=== PATIENT | female | born 2000 | race Caucasian/White ===

== ENCOUNTER 2025-07-19 14:22 | Outpatient (AMB) | payer OTHER, SELFPAY ==
--- NOTE | 2025-07-19 14:31 | MHC.PC.OV ---
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 She has a celiac disease, h pylori and abnormal Pap smear GI: She states around she started following with GI when she developed abdominal pain, bloating and significant weight loss. She had lost about 45 lb. She went to GI and was diagnosed with celiac disease and H pylori. She states that she is very good with a gluten free diet but still gets intermittent abdominal pain and bloating. We will come out of nowhere. Sometimes she thinks it could be related to foods but then other times she does not know. She never had a colonoscopy but she did have an endoscopy. -on 1 CT she was also noted to have fatty liver and was supposed to have an ultrasound to recheck this but never was able to complete this. She does not drink alcohol and she eats overall healthy. 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 She states that she now only has bleeding for 1 day out of the month with painful PMS sx. This has been going on since the beginning of this year. She had an abnormal pap 02/23/25. She says that there was no real follow up discussed in regards to the abnormal Pap. 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 1. Little interest or pleasure in doing things: not at all 2. Feeling down, depressed, or hopeless: not at all 3. Trouble falling or staying asleep, or sleeping too much: not at all 4. Feeling tired or having little energy: not at all 5. Poor appetite or overeating: not at all 6. Feeling bad about yourself - or that you are a failure or have let yourself or your family down: not at all 7. Trouble concentrating on things, such as reading the newspaper or watching television: not at all 8. Moving or speaking so slowly that other people could have noticed. Or the opposite - being so fidgety or restless that you have been moving around a lot more than usual: not at all 9. Thoughts that you would be better off or of hurting yourself in some way: not at all Total score: 0 Depression Screening Interpretation: Negative Depression Screening Done: Yes 07210 - PHQ-9 Billing: Yes Source: Developed by Drs. Ganesh Abarca, Anjelica Justice, Noah Malik and colleagues, with an educational agueda from [email or web address]. Thrive Questionnaire Date Thrive assessed: 07/19/25 I am a: Patient What is your living situation today?: I have a steady place to live Within the past 12 months, did the food you bought not last and you didn't have the money to get more?: Never true Within the past 12 months, did you worry whether your food would run out before you got money to buy more?: Never true Do you have trouble paying for medicines?: No Do you have trouble getting transportation to medical appointments?: No Do you have trouble paying your heating and electricity bill?: No Do you have trouble taking care of your child, family member or friend?: No Do you have trouble with day-to-day activities such as bathing, preparing meals, shopping, managing finances, etc.?: No Are you currently unemployed and looking for a job?: No Are you interested in more education?: Yes Please select the resources that you would like help with: None Currently or been in a relationship where the following occur: I choose not to answer THRIVE Score: 0 AUDIT C Alcohol Use Questionnaire (AUDIT-C) 1. How often do you have a drink containing alcohol?: Never 3. How often do you have six or more drinks on one occasion?: Never Total Score: 0 KALLI-7 AMB Questionnaire KALLI-7 Date KALLI - 7 assessed: 07/19/25 Feeling nervous, anxious, or on edge: 0 = Not at all Not being able to stop or control worryin = Not at all Worrying too much about different things: 0 = Not at all Trouble relaxin = Not at all Being so restless that it is hard to sit still: 0 = Not at all Becoming easily annoyed or irritable: 0 = Not at all Feeling afraid as if something awful might happen: 0 = Not at all Total KALLI-7 score (0-4 normal; 5-9 mild; 10-14 moderate; 15-21 severe): 0 Source: Developed by Drs. Ganesh Abarca, Anjelica Justice, Noah Malik and colleagues, with an educational agueda from [email or web address]. KALLI-7 Assessment Billing KALLI-7 Assessment Tool: KALLI-7 Assessment 02167 Physical exam (Primary Care) Vital Signs: Last Vital Signs Temp 98.6 F 07/19/25 14:38 Pulse 74 07/19/25 14:38 Resp 12 07/19/25 14:38 BP 109/66 07/19/25 14:38 Pulse Ox 98 07/19/25 14:38 Oxygen Delivery Method Room Air 07/19/25 14:38 BMI result Body Mass Index 23.0 Tobacco/Smoking Status: Tobacco use Status Tobacco use date assessed 07/19/25 07/19/25 14:45 Patient Tobacco Use Status Never used Tobacco 07/19/25 14:45 e-Cigarette/Vaping Use Never Used 07/19/25 14:45 PHQ-9: PHQ-9 Score PHQ-9: Total score 0 07/20/25 10:21 Depression Screening Interpretation: Negative Thrive Assessment: Date of Thrive Assessment Date Thrive assessed 07/19/25 07/19/25 14:45 Currently or been in a relationship where the following occur: I choose not to answer Const Orientation/consciousness: patient oriented x3 HENMT Ears: hearing grossly normal bilaterally Neck Thyroid: Thyroid normal Lymphatic: no lymphadenopathy noted Resp Auscultation: clear to auscultation bilaterally Cardio Rate: regular rate Rhythm: regular rhythm Heart sounds: S1 normal heart sound present and S2 normal heart sound present GI Inspection: Yes normal to inspection Palpation (GI): Soft to palpation and Other GI palpation findings present (nontender, no cva tenderness) Auscultation: normoactive bowel sounds Rectal Exam - Female: deferred Skin General skin exam: no rashes or lesions noted Neuro General: patient oriented x3, gait normal and no focal motor deficits Coding Level of Care Code New Pt Level 4 (44632) Complex EM visit Add On G2211 Diagnoses Celiac disease K90.0 Abdominal bloating R14.0 Abnormal menses N92.6 Abnormal Pap smear of cervix R87.619 Additional Codes KALLI-7 Assessment Billing - KALLI-7 Assessment Tool: KALLI-7 Assessment 16786 ([id number]) PHQ-9 - 34812 - PHQ-9 Billing: Yes ([id number]) Assessment & Plan Assessment & Plan (1) Celiac disease: Code(s): K90.0 - Celiac disease Category: Medical Plan: Labs ordered Referral to GI (2) Abdominal bloating: Code(s): R14.0 - Abdominal distension (gaseous) Category: Medical Plan: Labs Abdominal and pelvic ultrasound ? Endometriosis (3) Abnormal menses: Code(s): N92.6 - Irregular menstruation, unspecified Category: Medical Plan: As above (4) Abnormal Pap smear of cervix: Code(s): R87.619 - Unspecified abnormal cytological findings in specimens from cervix uteri Category: Medical Plan: Referral to gynecology Plan Short term follow up. Sooner if needed. Patient understands and agrees with this plan. Orders: Orders Transglutaminase Ab IgG 07/19/25 K90.0 - Celiac disease, N92.6 - Irregular menstruation, unspecified, R14.0 - Abdominal distension (gaseous), R87.619 - Unspecified abnormal cytological findings in specimens from cervix uteri H pylori Ag Stool 07/19/25 K90.0 - Celiac disease, N92.6 - Irregular menstruation, unspecified, R14.0 - Abdominal distension (gaseous), R87.619 - Unspecified abnormal cytological findings in specimens from cervix uteri Complete Blood Count Auto Diff 07/19/25 K90.0 - Celiac disease, N92.6 - Irregular menstruation, unspecified, R14.0 - Abdominal distension (gaseous), R87.619 - Unspecified abnormal cytological findings in specimens from cervix uteri Erythrocyte Sedimentation Rate 07/19/25 K90.0 - Celiac disease, N92.6 - Irregular menstruation, unspecified, R14.0 - Abdominal distension (gaseous), R87.619 - Unspecified abnormal cytological findings in specimens from cervix uteri Ferritin 07/19/25 K90.0 - Celiac disease, N92.6 - Irregular menstruation, unspecified, R14.0 - Abdominal distension (gaseous), R87.619 - Unspecified abnormal cytological findings in specimens from cervix uteri MARITZA Reflex Titer and Pattern 07/19/25 K90.0 - Celiac disease, N92.6 - Irregular menstruation, unspecified, R14.0 - Abdominal distension (gaseous), R87.619 - Unspecified abnormal cytological findings in specimens from cervix uteri US pelvic and transvaginal 07/19/25 K90.0 - Celiac disease, N92.6 - Irregular menstruation, unspecified, R14.0 - Abdominal distension (gaseous), R87.619 - Unspecified abnormal cytological findings in specimens from cervix uteri Endomysial IgA rflx Titer 07/19/25 K90.0 - Celiac disease, N92.6 - Irregular menstruation, unspecified, R14.0 - Abdominal distension (gaseous), R87.619 - Unspecified abnormal cytological findings in specimens from cervix uteri Immunoglobulin A 07/19/25 K90.0 - Celiac disease, N92.6 - Irregular menstruation, unspecified, R14.0 - Abdominal distension (gaseous), R87.619 - Unspecified abnormal cytological findings in specimens from cervix uteri Comprehensive [place]. Panel Fast 07/19/25 K90.0 - Celiac disease, N92.6 - Irregular menstruation, unspecified, R14.0 - Abdominal distension (gaseous), R87.619 - Unspecified abnormal cytological findings in specimens from cervix uteri IRON PROFILE 07/19/25 K90.0 - Celiac disease, N92.6 - Irregular menstruation, unspecified, R14.0 - Abdominal distension (gaseous), R87.619 - Unspecified abnormal cytological findings in specimens from cervix uteri Vitamin B12 and Folate 07/19/25 K90.0 - Celiac disease, N92.6 - Irregular menstruation, unspecified, R14.0 - Abdominal distension (gaseous), R87.619 - Unspecified abnormal cytological findings in specimens from cervix uteri Lipid Panel 07/19/25 K90.0 - Celiac disease, N92.6 - Irregular menstruation, unspecified, R14.0 - Abdominal distension (gaseous), R87.619 - Unspecified abnormal cytological findings in specimens from cervix uteri TSH reflex Free T4 07/19/25 K90.0 - Celiac disease, N92.6 - Irregular menstruation, unspecified, R14.0 - Abdominal distension (gaseous), R87.619 - Unspecified abnormal cytological findings in specimens from cervix uteri UA CC w/rflx Micro + Cult 07/19/25 K90.0 - Celiac disease, N92.6 - Irregular menstruation, unspecified, R14.0 - Abdominal distension (gaseous), R30.0 - Dysuria, R87.619 - Unspecified abnormal cytological findings in specimens from cervix uteri US abdomen complete 07/19/25 K90.0 - Celiac disease, N92.6 - Irregular menstruation, unspecified, R14.0 - Abdominal distension (gaseous), R87.619 - Unspecified abnormal cytological findings in specimens from cervix uteri 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
[2025-07-19 14:38] VITALS: BP 109/66; PULSE 74; RESP 12; TEMP 37; O2SAT 98; BMI 23.0
--- OUTSIDE RECORDS SUMMARY | 2025-07-19 15:20 | XMS_ITS | Continuity of Care Document ---
Author Name [facility] Organization [facility] Care Team Providers Care Grey Roll Man Name Role Phone [facility] Unavailable Unavailable Problems Combined list of problems from Department of Defense and Veterans Affairs facilities. It does not include entries that were removed or entered in error. Problem Status Onset Date Problem Type Date of Resolution Comments Source CHEST PAIN Active Condition DoD VULVOVAGINITIS Inactive Condition Discu ssed etiology and treatment options. Rec avoiding irritants (ie- bubblebaths) and using zinc oxide prn for irritation DoD Delayed Developmental Milestones Speech Active Condition Instructed parent that she can self-refer to school district for speech eval and therapy. If problems or if child needs [place]-specific speech therapy, parent to contact clinic for civilian consult DoD Parent Education: Inactive Condition vulvovginit is DoD Need For Vaccination Chickenpox (Active) Inactive Condition DoD Need For Vaccination MMR Inactive Condition DoD Need For Vaccination Poliomyelitis Inactive Condition DoD Vaccines Prophylactic Need Against DTP Inactive Condition DoD Preventive Medicine New Patient Evaluation Childhood 1-4 Inactive Condition Normal exam; adequate growth, development and nutrition status. Sent to immunizations clinic for routine vaccines. [facility] diarrhea Inactive Condition [facility] Allergies, Adverse Reactions, Alerts Combined list of allergies from Department of Defense and Veterans Affairs facilities. It does not include entries that were removed or entered in error. Substance Category Reaction Severity Reaction type Status Date Reported Comments Source No Known Allergies Drug allergy (disorder) active 11/30/2007 [facility] Immunizations Combined list of available immunizations from the Department of Defense and Veterans Affairs facilities. Immunization Series Date Given Administered By Site Reaction Lot Number CVX Code Drug Densitometer Reader Status Comments Source measles, mumps and rubella virus vaccine 1 2006 JANEY JOHNSON P 03 Transcribed (TRS) complet ed measles, mumps and rubella virus vaccine DoD poliovirus vaccine, inactivated 1 2006 10 Transcribed (TRS) complet ed polioviru s vaccine, inactivat ed DoD varicella virus vaccine 1 2006 JANEY JOHNSON P 21 Transcribed (TRS) complet ed varicella virus vaccine DoD DTaP-hepatiti s B and poliovirus vaccine 1 2006 JANEY JOHNSON 110 Transcribed (TRS) complet ed DTaP-hepa titis B and polioviru s vaccine DoD Encounters Combined list of: 1) Encounters from Department of Veterans Affairs facilities going backup to the last 18 months, not all [place] inpatient encounters are included; 2) Encounters from the Department of Defense facilities going backup to 280 months. Location Location Details Encounter Type Encounter Number Reason For Visit Attending Provider ADM Date DC Date Status Disposition Source [facility] Primary Care) OUTPATIENT [id number] Nausea, diarhea ERICKSON CHU R 10/29 Released w/o Limitations [facility] Primary Care) [facility]ZB[facility] B Primary Care) OUTPATIENT [id number] 6 yr well baby ANAIS HESS 12/16 Released w/o Limitations [facility](ZZZ BZB Primary Care) [facility](BZB Immunizat ion) OUTPATIENT [id number] immun JANEY JOHNSON 12/16 Released w/o Limitations [facility](BZB Immuniz ation) [facility](LSL Pediatric (9A)) TELE CONSULT [id number] VAGINAL ITCHING DAYSI SEGOVIA 09/07 [facility](L[facility] Pediatr ic (9A)) [facility] Pediatric (9A)) OUTPATIENT [id number] speech delay DAWN MCKENZIE 10/05 Released w/o Limitations [facility](LSL Pediatr ic (9A)) [facility](L Emergency Room) OUTPATIENT [id number] diff breathi OBINNA Milner 11/30 Released w/o Limitations [facility](LSL Emergen cy Room) Procedures Combined list of: 1) Procedures from Department of Veterans Affairs facilities going back up to thelast 18 months, not all [place] non-surgical procedures are included; 2) All procedures from the Department of Defense facilities. Procedure Procedure Type Code Date Perfomer Comments Sourc e Immunization Administration Each Additional Vaccine 12/16/2006 JANEY JOHNSON DoD Immunization Administration One Vaccine Immunization Administration One Vaccine 32827 12/16/2006 JANEY JOHNSON [facility] Vaccines Viral Varicella (Active) Vaccines Viral Varicella (Active) 48756 12/16/2006 JANEY JHONSON [facility] Vaccines Viral Measles, Mumps and Rubella, Live Vaccines Viral Measles, Mumps and Rubella, Live 60946 12/16/2006 JANEY JOHNSON [facility] Vaccines Viral Polio, Inactivated (Salk) Vaccines Viral Polio, Inactivated (Salk) 69137 12/16/2006 JANEY JOHNSON [facility] DTaP Vaccine DTaP Vaccine 25499 12/16/2006 Charlie JOHNSON [facility] URINALYSIS, BY DIP STICK OR TABLET REAGENT FOR BILIRUBIN, GLUCOSE, HEMOGLOBIN, KETONES, LEUKOCYTES, NITRITE, PH, PROTEIN, SPEC GRAVITY, UROBILINOGEN, ANY NUMBER OF CONSTITUENTS; W/O MICRO, NON-AUTO 11/30/2007 [facility] IMMUNIZATION ADMINISTRATION (INCLUDES PERCUTANEOUS, INTRADERMAL, SUBCUTANEOUS, OR INTRAMUSCULAR INJECTIONS); EACH ADDITIONAL VACCINE (SINGLE OR COMBINATION VACCINE/TOXOID) 12/16/2006 [facility] DIPHTHERIA, TETANUS TOXOIDS, AND ACELLULAR PERTUSSIS VACCINE (DTAP), WHEN ADMINISTERED TO INDIVIDUALS YOUNGER THAN 7 YEARS, FOR INTRAMUSCULAR USE 12/26/2003 [facility] NONINVASIVE EAR OR PULSE OXIMETRY FOR OXYGEN SATURATION; MULTIPLE DETERMINATIONS (EG, DURING EXERCISE) 09/17/2003 [facility] SKIN TEST; TUBERCULOSIS, INTRADERMAL 07/27/2003 [facility] PNEUMOCOCCAL CONJUGATE VACCINE, 7 VALENT, FOR INTRAMUSCULAR USE 04/17/2003 [facility] IMMUNIZATION ADMINISTRATION (INCLUDES PERCUTANEOUS, INTRADERMAL, SUBCUTANEOUS, OR INTRAMUSCULAR INJECTIONS); EACH ADDITIONAL VACCINE (SINGLE OR COMBINATION VACCINE/TOXOID) 2002 [facility] Social History Combined list of available smoking, tobacco, and other social history from Department of Defense and Veterans Affairs facilities. Social History Type Response Date Comment [facility] e This section is an empty social history section. DoD
--- OUTSIDE RECORDS SUMMARY | 2025-07-19 15:21 | XMS_ITS | Encounter Summary ---
Author Organization [facility] Address [address] [place] [phone] Phone Care Team Providers Care Car Filler Name Role Phone Margot Carlton MD Primary Care Provider [phone] Encounter Details Date Type Department Care Team (Late st Contact Info) Description 09/17/2011 Conversion Encounter [facility] [address] [place] [id number] Social History Tobacco Use Types Packs/Day Years Used Date Smoking Tobacco: Never Assessed Comments Unknown Sex and Gender Information Value Date Recorded Sex Assigned at Not on file Legal Sex Female 6:22 PM EDT Gender Identity Not on file Sexual Orientation Not on file documented as of this encounter Plan of Treatment Not on file documented as of this encounter Visit Diagnoses Not on filedocumented in this encounter Care Teams Car Filler Relationship Specialty Start Date End Date Margot Carlton MD PCP - General 04/07/18 documented as of this encounter
== END 2025-07-19 15:25 | disposition home or self-care (01) ==
LOC: HO.HMCFM 14:23
PROVIDERS: PCP Physician Assistant; Visit Provider Physician Assistant
DX: K90.0 Celiac disease (principal); R14.0 Abdominal distension (gaseous); N92.6 Irregular menstruation, unspecified; R87.619 Unspecified abnormal cytological findings in specimens from cervix uteri

== ENCOUNTER → 2025-07-19 14:22 | Outpatient (BNVA) | payer OTHER, SELFPAY | PROVIDERS: PCP Physician Assistant; Visit Provider Physician Assistant | DX: K90.0 Celiac disease (principal); R14.0 Abdominal distension (gaseous); N92.6 Irregular menstruation, unspecified; R87.619 Unspecified abnormal cytological findings in specimens from cervix uteri | CPT/HCPCS: 96127 ==

== ENCOUNTER 2025-08-22 10:29 | Outpatient (REF) | payer OTHER, SELFPAY ==
--- OUTSIDE RECORDS SUMMARY | 2025-08-22 12:49 | XMS_ITS | Encounter Summary ---
Author Organization [facility] Address [address] [place] [phone] Phone Care Team Providers Care Medical Writer Name Role Phone Margot Carlton MD Primary Care Provider [phone] Encounter Details Date Type Department Care Team (Late st Contact Info) Description 09/17/2011 Conversion Encounter [facility] [address] [place] [id number] Social History Tobacco Use Types Packs/Day Years [...] on filedocumented in this encounter Care Teams Medical Writer Relationship Specialty Start Date End Date Margot Carlton MD PCP - General 04/07/18 documented as of this encounter
--- OUTSIDE RECORDS SUMMARY | 2025-08-22 12:49 | XMS_ITS | Clinical Summary ---
Author Organization [facility] Address [address] [place] [id number] Phone Care Team Providers Care Brand Coordinator Name Role Phone Margot Carlton MD Primary Care Provider [phone] Allergies No known active allergies Medications cloNIDine 0.1 MG tabletIndication s:Insomnia, unspecified type Take 1 tablet (0.1 mg total) by mouth nightly. 30 tablet 1 01/14/2022 Active Butalbital-APAP- Caffeine (Fioricet) 50-300-40 MG capsuleIndicatio ns:Migraine without status migrainosus, not intractable, unspecified migraine type Take 1 capsule by mouth every 8 (eight) hours as needed (migraine). 10 capsule 1 01/14/2022 Active Active Problems Problem Noted Date Diagnosed Date Influenza vaccine refused 08/27/2021 Chronic pain of both knees 09/09/2019 Assessment & Plan (09/09/2019 5:50 PM EDT): Left knee worse than right by history. No concern for a ligament issue on exam. No obvious meniscal irritation. No fluid noted in joint. Discussed use of a sleeve brace to help with discomfort in knee. Referring to ortho for further evaluation and management. Immunizations Immunization Administration Dates Next Due DTaP 5 02/23/2009, 4,07/27/2003, 003,2002 HPV Vaccine 9 Valent 09/26/2016,05/27/2016,03/25 Hep A, ped/adol 04/14/2019,03/30/2018 Hep B, ped/adol 07/27/2003,04/17/2003,2002 Hib (PRP-T) 07/27/2003,04/17/2003,2002 IPV 12/16/2006, 4,04/17/2003, 003 MMR 12/16/2006,07/27/2003 Meningococcal Conj (Menactra) MCV4P 04/14/2019,0 03/09/2014 Pneumococcal Conjugate 13-Valent 004,07/27/2003,04/17/2003, 003 Tdap 03/09/2014 Varicella 12/16/2006,07/27/2003 Family History Medical History Relation Name Comments No Known Problems Father David No Known Problems Mother Beti No Known Problems Sister Sherry Relation Name Status Comments Father David Alive Mother Beti Alive Sister Sherry Alive Social History Tobacco Use Types Packs/Day Years Used Date Smoking Tobacco: Never Smokeless Tobacco: Never Comments:Never Smoker Alcohol Use Standard Drinks/Week Comments Never 0 (1 standard drink = 0.6 oz pur e alcohol) Hunger/Food Answer Date Recorded In the last 12 months, did y ou or your family ever eat less than you felt you should because there wasn't enough money for food? No 08/27/2021 Stable Housing Answer Date Recorded Are you worried that in the next 2 months you may not have stable housing? No 08/27/2021 Transportation Concerns Answer Date Rec orded In the last 12 months, have you or your family ever had to go without healthcare because you didn't have a way to get there? No 08/27/2021 Hazards in Home Answer Date Recorded Think about the place you li ve. Do you have problems with any of the following? Pests (mice or roaches), mold, no/not working smoke detectors, water leaks, no window guards. No 2020 Financing Utilities Answer Date Recorde d In the last 12 months, has t he electric, gas, oil, or water company threatened to shut off your services in your home? No 08/27/2021 Safety at Home Answer Date Recorded Are you or your family worried about feeling saf e in your home? No 08/27/2021 Outside Support Answer Date Recorded Do you feel that you need mo re support from other people or programs to help you care for yourself or your family? No 08/27/2021 Understanding Health Concerns Answer Da te Recorded Do you need help understandi ng your or your child's healthcare needs (diagnosis, medications, plan, etc.)? No 08/27/2021 Financing Health Concerns Answer Date R ecorded In the last 12 months, was t here a time when your child needed to see a doctor or get medications or supplies but could not because of cost? No 08/27/2021 Missing School or Work Answer Date Tadeo rded Did you or your child miss s chool or work because of a health problem that could have been avoided? No 08/27/2021 Comments No Sex and Gender Information Value Date Recorded Sex Assigned at Not on file Legal Sex Female 6:22 PM EDT Gender Identity Not on file Sexual Orientation Not on file Last Filed Vital Signs Vital Sign Reading Time Taken Comments Blood Pressure 120/72 01/14/2022 5:38 PM EST Pulse 88 01/14/2022 5:38 PM EST Temperature 36.6 C (97.9 F) 01/14/2022 5:38 PM EST Respiratory Rate - - Oxygen Saturation - - Inhaled Oxygen Concentration - - Weight 62.1 kg (137 lb) 01/14/2022 5:38 PM EST Height 160 cm (5' 3 ) 01/14/2022 5:38 PM EST Body Mass Index 24.27 01/14/2022 5:38 PM EST Plan of Treatment Health Maintenance Due Date Last Done Comments Men B Vaccine (1 of 2 - Standard) 2018 DTaP,Tdap,and Td Vaccines (7 - Td or Tdap) 03/09/2024 03/09/2014, 02/23/2009, 12/26/2003, Additional history exists Influenza Vaccines (#1) 2025 09/25/2022 COVID-19 Vaccine ( - 2023-2 5 season) 2025 HIB Vaccines Completed 07/27/2003, 03/30, 2002 Hepatitis B Vaccines Completed 07/27/2003, 04/17/2003, 2002 Pneumococcal Vaccine Completed 12/26/2003, 07/27/2003, 04/17/2003, Additional history exists IPV Vaccines Completed 12/16/2006, 12/01, 04/17/2003, Additional history exists MMR Vaccines Completed 12/16/2006, 07/27/2003 Varicella Vaccines Completed 12/16/2006, 07/27/2003 HPV Vaccines Completed 09/26/2016, 05/01, 03/25/2016 Hepatitis A Vaccines Completed 04/14/2019, 03/30/20 18 Meningococcal Vaccine Completed 04/14/2019, 014 Procedures * Due to [place] [employer] law, this organization might not be sharing sensitive test results. Procedure Name Priority Date/Time Associated Diagnosis Comments CHLAMYDIA GC AMP PROBE Routine 08/27/2021 9:07 AM EDT Well adult exam from Last 3 Months or Most Recently Relevant to Health Maintenance Results * Due to [place] [employer] law, this organization might not be sharing sensitive test results. * CHLAMYDIA GC AMP PROBE (08/27/2021 9:07 AM EDT) Chlamydia Trachomatis, Amplified NEGATIVE (NEG) [facility] Comment: No Chlamydia Trachomatis RNA detected in this patient's sample (REFERENCE RANGE/NORMAL VALUE: NOT DETECTED) Note: This test uses bar host- mediated amplification method to detect rRNA from C. Trachomatis N.GONORRHOEAE AMP PROBE NEGATIVE (NEG) [facility] Comment: No Neisseria Gonorrhoeae RNA detected in this patient's sample (REFERENCE RANGE/NORMAL VALUE: NOT DETECTED) NOTE: This test uses bar host-mediated amplification method to detect rRNA from N.Gonorrhoeae. A negative result does not preclude infection. In the case of a negative urine result, testing of an endocervical(female) or urethral (male) specimen is recommended if there is high clinical suspicion of infection. Due to very high sensitivity of Nucleic Acid Amplification Test, false positive results may occur. Therefore, specimen handling is extremely important. In patients in whom the disease is unlikely, additional sample for testing should be considered after an initial positive result. The performance characteristics of this test have not been evaluated in children. The Aptima Combo2 assay is not intended for the evaluation of suspected sexual abuse or for other medico-legal indications. The ordering provider should assess if the patient had consensual sex without risk of sexual abuse. Consult the [facility] if needed. Contact phone number . Therapeutic failure or success cannot be determined with the Aptima Combo2 assay since nucleic acid may persist following appropriate antimicrobial therapy. The Centers for Disease Control and Prevention (CDC) recommends confirmatory retesting using culture or a different nucleic acid amplification test when positive results occur, if indicated. CHLAM/GC AMP PROBE SPEC TYPE CERVIX [facility] Comment: Testing performed or reported by [facility], a Service of [facility], [facility] [place] [address] Jose Alfredo Law MD, Floater Operator [facility]# [id number] Swab (Vagina) 08/27/2021 9:0 7 AM EDT 08/27/2021 9:57 PM EDT us Margot Carlton MD LAB MICROBIOLOGY - GENERAL ORDER WILIAN Final Result [facility] from Last 3 Months or Most Recently Relevant to Health Maintenance Insurance [employer] Care Teams Brand Coordinator Relationship Specialty Start Date End Date Marogt Carlton MD PCP - General 04/07/18
[2025-08-22 13:28] LABS: Appearance Urine Clear; Glucose Urine UA Negative (Negative); PH 6.5 (5.0-9.0); Specific Gravity - Urine 1.020 (1.005-1.025)
[2025-08-22 13:39] LABS: MANUAL DIFF FLAG NO
[2025-08-22 13:47] LABS: Hematocrit 42.3 % (37.0-47.0); Hemoglobin 14.3 g/dl (12.0-16.0); Imm Gran Abs Auto 0.02 X10*3/uL (0.00-0.03); Imm Gran Pct Auto 0.4 % (0.0-0.4); Lymphocytes Absolute Auto 1.7 X10*3/uL (1.2-4.9); Mean Corpuscular HGB Conc 33.8 g/dl (31.0-35.0); Mean Corpuscular Hemoglobin 29.4 pg (27.0-33.0); Mean Corpuscular Volume 86.9 fL (80.0-98.0); NRBC Abs Auto 0.000 X10*3/uL (0.0-0.012); NRBC Pct Auto 0.0 /100WBC (0.0-0.2); Platelet Count 179 X10*3/uL (160-400); Red Blood Count 4.87 X10*6/uL (4.20-5.50); White Blood Count 4.7 X10*3/uL (4.8-10.8)
[2025-08-22 14:22] LABS: Alanine Aminotransferase 14 U/L (0-31); Albumin Level 4.8 g/dL (3.5-5.0); Alkaline Phosphatase 41 U/L (39-117); Anion Gap 12 (12-20); Aspartate Amino Transferase 28 U/L (5-31); Blood Urea Nitrogen 11 mg/dL (9-16); Calcium 9.5 mg/dL (8.4-10.2); Carbon Dioxide 26 mmol/L (22-29); Chloride 108 mmol/L (96-108); Cholesterol 161 mg/dL (<200); Estimated Glomerular Filt Rate > 60; HDL Cholesterol 55 mg/dL (>40); Iron 127 mcg/dL (30-160); Percent Iron Saturation 43 % (15-50); Potassium 4.2 mmol/L (3.3-5.1); Sodium 142 mmol/L (135-145); Total Iron Binding Capacity 292 mcg/dL (228-428); Total Protein 7.2 g/dL (6.5-8.0); Triglycerides 32 mg/dL (<150); Unsaturated Iron Binding 165 ug/dL
[2025-08-22 14:52] LABS: Ferritin 46 ng/mL (10-122)
[2025-08-22 14:53] LABS: Folate 5.8 ng/mL (> or = 4.0); Vitamin B12 443 pg/mL (200-900)
[2025-08-23 04:19] LABS: Immunoglobulin A 70 mg/dL (47-310)
[2025-08-23 14:43] LABS: Anti Nuclear Antibody Screen NEGATIVE (NEGATIVE)
[2025-08-23 22:29] LABS: Transglutaminase Ab IgG <1.0 U/mL
== END 2025-08-22 10:30 | disposition home or self-care (01) ==
LOC: HO.HMGCLDS 10:29
PROVIDERS: PCP Physician Assistant; Visit Provider Physician Assistant
DX: Z01.84 Encounter for antibody response examination (principal); K90.0 Celiac disease; R14.0 Abdominal distension (gaseous); N92.6 Irregular menstruation, unspecified; R87.619 Unspecified abnormal cytological findings in specimens from cervix uteri; R30.0 Dysuria; Z13.6 Encounter for screening for cardiovascular disorders
CPT/HCPCS: 36415; 80053; 80061; 81003; 82607; 82728; 82746; 82784; 83540; 84443; 85025; 85652; 86038; 86231; 86364

== ENCOUNTER 2025-08-23 08:23 | Outpatient (REF) | payer OTHER, SELFPAY ==
--- OUTSIDE RECORDS SUMMARY | 2025-08-23 12:34 | XMS_ITS | Encounter Summary ---
Author Organization [facility] Address [address] [place] [address] Phone Care Team Providers Care Valve Technician Name Role Phone Margot Carlton MD Primary Care Provider [phone] Encounter Details Date Type Department Care Team (Late st Contact Info) Description 09/17/2011 Conversion Encounter [facility] [address] [place] [address] Social History Tobacco Use Types Packs/Day Years [...] on filedocumented in this encounter Care Teams Valve Technician Relationship Specialty Start Date End Date Margot Carlton MD PCP - General 04/07/18 documented as of this encounter
--- OUTSIDE RECORDS SUMMARY | 2025-08-23 12:34 | XMS_ITS | Clinical Summary ---
Author Organization [facility] Address [address] [place] [address] Phone Care Team Providers Care Business Support Specialist Name Role Phone Margot Carlton MD Primary Care Provider [phone] Allergies No known active allergies Medications cloNIDine [...] 04/14/2019, 014 Procedures * Due to [place] [employer] law, this organization might not be sharing sensitive test results. Procedure Name Priority Date/Time Associated Diagnosis Comments CHLAMYDIA GC AMP PROBE Routine 08/27/2021 9:07 AM EDT Well adult exam from Last 3 Months or Most Recently Relevant to Health Maintenance Results * Due to [place] [employer] law, this organization might not be sharing sensitive test results. * CHLAMYDIA GC AMP PROBE (08/27/2021 9:07 AM EDT) Chlamydia Trachomatis, Amplified NEGATIVE (NEG) [facility] Comment: No Chlamydia Trachomatis RNA detected in this patient's sample (REFERENCE RANGE/NORMAL VALUE: NOT DETECTED) Note: This test uses cigar binder- mediated amplification method to detect rRNA from C. Trachomatis N.GONORRHOEAE AMP PROBE NEGATIVE (NEG) [facility] Comment: No Neisseria Gonorrhoeae RNA detected in this patient's sample (REFERENCE RANGE/NORMAL VALUE: NOT DETECTED) NOTE: This test uses cigar binder-mediated amplification method to detect rRNA from N.Gonorrhoeae. [...] without risk of sexual abuse. Consult the [facility] if needed. Contact phone number . Therapeutic failure or success cannot be determined with the Aptima Combo2 assay since nucleic acid may persist following appropriate antimicrobial therapy. The Centers for Disease Control and Prevention (CDC) recommends confirmatory retesting using culture or a different nucleic acid amplification test when positive results occur, if indicated. CHLAM/GC AMP PROBE SPEC TYPE CERVIX [facility] Comment: Testing performed or reported by [facility], a Service of [facility], [facility] [place] [address] Jose Alfredo Law MD, Spare Parts Clerk [facility]# [id number] Swab (Vagina) 08/27/2021 9:0 7 AM EDT 08/27/2021 9:57 PM EDT us Margot Carlton MD LAB MICROBIOLOGY - GENERAL ORDER WILIAN Final Result [facility] from Last 3 Months or Most Recently Relevant to Health Maintenance Insurance [employer] Care Teams Business Support Specialist Relationship Specialty Start Date End Date Margot Carlton MD PCP - General 04/07/18
== END 2025-08-23 08:24 | disposition home or self-care (01) ==
LOC: HO.HMGCLNP 08:23
PROVIDERS: PCP Physician Assistant; Visit Provider Physician Assistant
DX: Z23 Encounter for immunization (principal); K90.0 Celiac disease; R14.0 Abdominal distension (gaseous); N92.6 Irregular menstruation, unspecified; M25.562 Pain in left knee; M25.561 Pain in right knee; R87.619 Unspecified abnormal cytological findings in specimens from cervix uteri
CPT/HCPCS: 87338; 90471; 90746

== ENCOUNTER 2025-08-23 13:41 | Outpatient (AMB) | payer OTHER, SELFPAY ==
--- NOTE | 2025-08-23 13:52 | A.OFFVIS_ITS ---
Vital Signs 08/23/25 13:54 Height 5 ft 2 in Weight 127 lb 8 oz BMI 23.3 Intake Visit Reasons: meds and labs/hep b Allergies No Known Allergies Allergy (Verified 07/19/25 14:36) HPI HPI meds and labs/hep b: Details: Pt is a 24 y/o female who presents today to establish care. She has a celiac disease, h pylori and abnormal Pap smear GI: She states around she started following with GI when she developed abdominal pain, bloating and significant weight loss. She had lost about 45 lb. She went to GI and was diagnosed with celiac disease and H pylori. She states that she is very good with a gluten free diet but still gets intermittent abdominal pain and bloating. We will come out of nowhere. Sometimes she thinks it could be related to foods but then other times she does not know. She never had a colonoscopy but she did have an endoscopy. She was referred to GI but has not heard. She has been following an anti-inflammatory diet and states that that has been helpful. -on 1 CT she was also noted to have fatty liver and was supposed to have an ultrasound to recheck this but never was able to complete this. She does not drink alcohol and she eats overall healthy. This was ordered for her and appointment is pending. Coal Hiker: She is scheduled to see industrial engineering professor in 6 months. She states that she recently had a period and it was very abnormal. She states that she had significant amount of clotting which has not happened in awhile. It also lasted for longer than before. Pelvic ultrasound appointment is pending. MSK: Does know left lateral posterior knee pain at times. It is mostly with squatting. At times feels the knee is unstable. No specific injury. No s welling. It is not tender to palpation. 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 Current occupational exposures/hazards: Yes Cognitive needs: No Hearing needs: No Vision needs: No Physical Exam Vital Signs: BMI result Body Mass Index 23.3 Const Orientation/consciousness: patient oriented x3 HEENT Ears: hearing grossly normal bilaterally Neck Thyroid: Thyroid normal Lymphatic: no lymphadenopathy noted Resp Auscultation: clear to auscultation bilaterally Cardio Rate: regular rate Rhythm: regular rhythm Heart sounds: S1 normal heart sound present and S2 normal heart sound present GI Inspection: Yes normal to inspection Palpation (GI): Soft to palpation and Other GI palpation findings present (nontender, no cva tenderness) Auscultation: normoactive bowel sounds Rectal Exam - Female: deferred Skin General skin exam: no rashes or lesions noted Neuro General: patient oriented x3, gait normal and no focal motor deficits Immunizations Recombivax HB (PF) 10 mcg/mL intramuscular suspension Performing Provider: Mary Guardado PA-C Performing Location: [facility] Administered by: Mercedes Moralez CMA on 08/23/25 14:23 Dose Route Admin Location Dispensed Lot Number Expiration Date [facility] Internet Designer 1 mL IM Left Deltoid 1 mL [id number] 07/23/26 83736-326-49 [employer] Memory Total Dispensed Waste 1 mL 0 % VIS Given Date VIS Provided VIS Publication Date 08/23/25 Single Vaccine 23 Eligibility Eligibility Date Funding Source Not [facility] Eligible 08/23/25 Private Assessment & Plan Assessment & Plan (1) Celiac disease: Code(s): K90.0 - Celiac disease Category: Medical Plan: Referral to [facility] GI (2) Abdominal bloating: Code(s): R14.0 - Abdominal distension (gaseous) Category: Medical Plan: Imaging pending. Labs are still pending. We will follow up pending test results. (3) Abnormal menses: Code(s): N92.6 - Irregular menstruation, unspecified Category: Medical Plan: As above. Has consult into industrial engineering professor (4) Left knee pain: Code(s): M25.562 - Pain in left knee Category: Medical Plan: X-ray ordered Referral to ortho Orders: Orders Estrad Free (Tot Ultra + Free) 08/24/25 N92.6 - Irregular menstruation, unspecified Testosterone, Free/Total 08/24/25 N92.6 - Irregular menstruation, unspecified Follicle Stimulating Hormone 08/24/25 N92.6 - Irregular menstruation, unspecified Lutenizing Hormone 08/24/25 N92.6 - Irregular menstruation, unspecified XR knee LT 2V 08/24/25 M25.561 - Pain in right knee, M25.562 - Pain in left knee Hepatitis B Adult Immunization 08/23/25 Z23 - Encounter for immunization Referrals Gastroenterology Referral K90.0 - Celiac disease, R14.0 - Abdominal distension (gaseous) Orthopedics Referral M25.562 - Pain in left knee Patient Instructions: [email or web address] GI- [phone]? Coding Level of Care Code Est Pt Level 4 (83102) Complex EM visit Add On G2211 Diagnoses Celiac disease K90.0 Abdominal bloating R14.0 Abnormal menses N92.6 Left knee pain M25.562
[2025-08-23 13:54] VITALS: BMI 23.3
== END 2025-08-23 14:28 | disposition home or self-care (01) ==
LOC: HO.HMCFM 13:42
PROVIDERS: PCP Physician Assistant; Visit Provider Physician Assistant
DX: Z23 Encounter for immunization (principal)

== ENCOUNTER 2025-08-24 09:32 | Outpatient (REF) | payer OTHER, SELFPAY ==
--- NOTE | ~2025-08-24 | XR_ITS ---
EXAMINATION: XR KNEE, LEFT CLINICAL INFORMATION: Pain in left knee COMPARISON: None available. TECHNIQUE: AP and lateral views of the left knee. FINDINGS: There is no joint effusion. Joint spaces are preserved. No osteophytes are noted. XR/XR knee LT 2V IMPRESSION: Unremarkable left knee. Electronically signed by: Coleman Anna MD 08/24/2025 09:52 AM EDT
[2025-08-25 05:19] LABS: Follicle Stimulating Hormone 12.9 mIU/mL
[2025-08-30 20:08] LABS: Testosterone, Free 4.0 pg/mL (0.1-6.4)
[2025-09-08 04:53] LABS: Estradiol Free 0.76 pg/mL; Estradiol, Ultrasensitive 46 pg/mL
== END 2025-08-24 09:33 | disposition home or self-care (01) ==
LOC: HO.HMGCX 09:32
PROVIDERS: PCP Physician Assistant; Visit Provider Physician Assistant
DX: M25.562 Pain in left knee (principal); M25.561 Pain in right knee; N92.6 Irregular menstruation, unspecified
CPT/HCPCS: 36415; 73560; 82670; 82681; 83001; 83002; 84402; 84403

== ENCOUNTER → 2025-08-24 09:36 | Outpatient (BNV) | payer OTHER, SELFPAY | PROVIDERS: PCP Physician Assistant; Visit Provider Radiology Diagnostic Radiology | DX: M25.562 Pain in left knee (principal) | CPT/HCPCS: 73560 ==

== ENCOUNTER 2025-09-07 13:59 | Outpatient (AMB) | payer OTHER, SELFPAY ==
--- NOTE | 2025-09-07 14:11 | MHC.OFFVIS ---
Vital Signs 09/07/25 14:12 Height 5 ft 2 in Weight 127 lb BMI 23.2 Intake Visit Reasons: Left knee pain and giving way Intake Note: Caridad is a 25 year old female who presents today as a new patient for her left knee pain. Patient was referred by Family Medicine on 08/23/25, at their visit she had a X ray done of the left knee. At today's visit she states knee pain started about 3-4 months, feels like her knee will give out when walking up a flight of stairs. States it fees like she has a balloon in her knee. She has been stretching which provided temporary relief. She has failed the last 6 weeks of conservative treatment which has included Tylenol, anti-inflammatory medicines, a home exercise program and physical therapy exercises. Most of the pain is along the medial aspect of her knee. Allergies No Known Allergies Allergy (Verified 09/07/25 14:16) Medication List - Last Reconciled 09/07/25 by Chencho Flores MD No Known Home Meds PFSH Surgical History H/O endoscopy Family History (Updated 07/19/25 @ 14:43 by Mercedes Moralez CMA) Mother Alcoholism Father Asthma Paternal Grandmother Throat cancer Other FH: mental illness Substance abuse Social History Housing: House Alcohol intake: never Patient Tobacco Use Status: Never used Tobacco e-Cigarette/Vaping Use: Never Used Second Hand Smoke Exposure: No Substance Use Type: Marijuana service: No Current occupational status: employed and student 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 Current occupational exposures/hazards: Yes Cognitive needs: No Hearing needs: No Vision needs: No Physical Exam Vital Signs: BMI result Body Mass Index 23.2 Const Other: Well-nourished well-developed very friendly female awake alert and oriented x3 in no acute distress Extrem Other: Bilateral lower extremity examination shows good capillary refill, no skin lesions noted, normal sensation light touch Left knee examination shows a minimal effusion, minimal crepitus with range of motion, tenderness along her medial joint line, positive Joshua's test, no instability Results Reviewed Results Reviewed: X-rays of the patient's left knee show no acute bony abnormalities, no degenerative changes Assessment & Plan Assessment & Plan (1) Tear of medial meniscus of left knee: Code(s): S83.242A - Other tear of medial meniscus, current injury, left knee, initial encounter Category: Medical Plan Ms. Jain presents with left knee pain and mechanical symptoms possibly due to a medial meniscus tear. Thus, I will send the patient for an MRI of her left knee for further evaluation. I will see her back once the MRI is completed to discuss the findings and treatment options. Feel free to call me at any time should questions regarding her orthopedic management arise. Thank you very much for asking me to see this very friendly patient. I spent 22 minutes in reviewing the patient's records and imaging studies, seeing the patient and documenting in the medical record. Orders: Orders MR knee LT wo con Today S83.242A - Other tear of medial meniscus, current injury, left knee, initial encounter Coding Level of Care Code New Pt Level 3 (76527) Complex EM visit Add On G2211 Diagnoses Tear of medial meniscus of left knee S83.242A
[2025-09-07 14:12] VITALS: BMI 23.2
== END 2025-09-07 14:34 | disposition home or self-care (01) ==
LOC: HO.HOS 14:00
PROVIDERS: PCP Physician Assistant; Visit Provider Orthopaedic Surgery
DX: S83.242A Other tear of medial meniscus, current injury, left knee, initial encounter (principal)
CPT/HCPCS: 99203; G2211

== ENCOUNTER 2025-09-20 09:54 | Outpatient (REF) | payer OTHER, SELFPAY ==
--- NOTE | ~2025-09-20 | US_ITS ---
CLINICAL HISTORY: K90.0 - Celiac disease US abdomen complete with color Doppler Comparison: None Findings: The visualized pancreas, aorta, and inferior vena cava are unremarkable. Liver normal size and echotexture. Right lobe 10.6 cm length. No focal hepatic masses. Common duct 3.4 mm diameter. Physiologic distention of the gallbladder. No gallstones or sludge. No gallbladder wall thickening. No pericholecystic fluid. No sonographic Shields sign. Right kidney normal size, 9.0 cm in length. Normal cortical width and echotexture. No solid or cystic renal masses. No nephrolithiasis. No hydronephrosis. Left kidney normal, 10.8 cm in length. Normal cortical width and echotexture. No solid or cystic renal masses. No nephrolithiasis. No hydronephrosis. Spleen measures 10.3 cm. No splenic masses. No ascites. No lymphadenopathy. Impression: 1. Normal abdominal ultrasound. This document has been electronically signed by: Kain Gutierres MD on 09/21/2025 13:03:36
--- NOTE | ~2025-09-20 | US_ITS ---
CLINICAL HISTORY: K90.0 - Celiac disease US pelvis transabdominal and transvaginal with color Doppler Comparison: None Findings: Transabdominal scanning performed for overall anatomy. Transvaginal scanning performed for additional detail. LMP: 09/19/2024 Anteverted uterus, normal size and echotexture, measuring 6.5 x 2.4 x 4.3 cm. Well defined endometrium, measuring 4.8 mm in thickness. The right ovary measures, 2.5 x 1.7 x 1.8 cm. Normal sonographic appearance right ovary. The left ovary measures, 3.4 x 1.8 x 2.5 cm. Normal sonographic appearance left ovary. No adnexal masses or fluid collections. No free fluid Impression: 1. Normal pelvic ultrasound This document has been electronically signed by: Kain Gutierres MD on 09/21/2025 13:04:41
--- OUTSIDE RECORDS SUMMARY | 2025-09-20 11:55 | XMS_ITS | Clinical Summary ---
Author Organization [facility] Address [address] [place] [address] Phone Care Team Providers Care Cook Pickled Meat Name Role Phone Margot Carlton MD Primary Care Provider [phone] Allergies No known active allergies Medications cloNIDine [...] (#1) 2025 09/25/2022 COVID-19 Vaccine ( - 2024-2 6 season) 2025 HIB Vaccines Completed 07/27/2003, 03/30, [...] Completed 04/14/2019, 014 Procedures * Due to [place] [employer]K law, this organization might not be sharing sensitive test results. Procedure Name Priority Date/Time Associated Diagnosis Comments CHLAMYDIA GC AMP PROBE Routine 08/27/2021 9:07 AM EDT Well adult exam from Last 3 Months or Most Recently Relevant to Health Maintenance Results * Due to [place] stickK law, this organization might not be sharing sensitive test results. * CHLAMYDIA GC AMP PROBE (08/27/2021 9:07 AM EDT) Chlamydia Trachomatis, Amplified NEGATIVE (NEG) [facility] Comment: No Chlamydia Trachomatis RNA detected in this patient's sample (REFERENCE RANGE/NORMAL VALUE: NOT DETECTED) Note: This test uses shoe trimmer- mediated amplification method to detect rRNA from C. Trachomatis N.GONORRHOEAE AMP PROBE NEGATIVE (NEG) [facility] Comment: No Neisseria Gonorrhoeae RNA detected in this patient's sample (REFERENCE RANGE/NORMAL VALUE: NOT DETECTED) NOTE: This test uses shoe trimmer-mediated amplification method to detect rRNA from N.Gonorrhoeae. [...] without risk of sexual abuse. Consult the [facility] if needed. Contact phone number . Therapeutic failure or success cannot be determined with the Aptima Combo2 assay since nucleic acid may persist following appropriate antimicrobial therapy. The Centers for Disease Control and Prevention (CDC) recommends confirmatory retesting using culture or a different nucleic acid amplification test when positive results occur, if indicated. CHLAM/GC AMP PROBE SPEC TYPE CERVIX [facility] Comment: Testing performed or reported by [facility], a Service of [facility], [facility] [place] [address] Jose Alfredo Law MD, Manager Oracle Database [facility]# [id number] Swab (Vagina) 08/27/2021 9:0 7 AM EDT 08/27/2021 9:57 PM EDT us Margot Carlton MD LAB MICROBIOLOGY - GENERAL ORDER WILIAN Final Result [facility] from Last 3 Months or Most Recently Relevant to Health Maintenance Insurance [employer] Care Teams Cook Pickled Meat Relationship Specialty Start Date End Date Margot Carlton MD PCP - General 04/07/18
--- OUTSIDE RECORDS SUMMARY | 2025-09-20 11:55 | XMS_ITS | Encounter Summary ---
Author Organization [facility] Address [address] [place] [address] Phone Care Team Providers Care Secondary School Teacher Librarian Name Role Phone Margot Carlton MD Primary Care Provider [phone] Encounter Details Date Type Department Care Team (Late st Contact Info) Description 09/17/2011 Conversion Encounter [facility] [address] [place] [address] Social History Tobacco Use Types Packs/Day Years [...] on filedocumented in this encounter Care Teams Secondary School Teacher Librarian Relationship Specialty Start Date End Date Margot Carlton MD PCP - General 04/07/18 documented as of this encounter
== END 2025-09-20 09:55 | disposition home or self-care (01) ==
LOC: HO.HMGCX 09:54
PROVIDERS: PCP Physician Assistant; Visit Provider Physician Assistant
DX: K90.0 Celiac disease (principal); R14.0 Abdominal distension (gaseous); N92.6 Irregular menstruation, unspecified; R87.619 Unspecified abnormal cytological findings in specimens from cervix uteri
CPT/HCPCS: 76700; 76830; 76856

== ENCOUNTER → 2025-09-20 09:58 | Outpatient (BNV) | payer OTHER, SELFPAY | PROVIDERS: PCP Physician Assistant; Visit Provider Radiology Diagnostic Radiology | DX: K90.0 Celiac disease (principal); N92.6 Irregular menstruation, unspecified | CPT/HCPCS: 76700; 76830; 76856 ==

== ENCOUNTER 2025-10-19 17:56 | Outpatient (REF) | payer OTHER, SELFPAY ==
--- NOTE | ~2025-10-19 | MR_ITS ---
EXAMINATION: MR KNEE WITHOUT CONTRAST, LEFT CLINICAL INFORMATION: Meniscal tear. COMPARISON: X-ray 08/24/2025 TECHNIQUE: MRI of the knee without contrast was performed using routine sequences on a high-field scanner. FINDINGS: MENISCI: Medial Meniscus: Intact Lateral Meniscus: Mild irregularity of the anterior root, which could reflect fraying.. 9 mm cystic focus anterior to the anterior root, nonspecific, could reflect a ganglion cyst or a parameniscal cyst. Remainder the meniscus appears intact. LIGAMENTS: Cruciate: Intact Collateral: Intact EXTENSOR MECHANISM: Intact ARTICULAR CARTILAGE/BONE: Patellofemoral Compartment: No significant chondral loss Medial Compartment: No significant chondral loss Lateral Compartment: No significant chondral loss No fracture. No aggressive marrow replacing lesion. JOINT FLUID AND BURSAE: Small joint fluid. No significant Gonzales's cyst. MR/MR knee LT wo con IMPRESSION: * Mild irregularity of the lateral meniscal anterior root, could reflect mild fraying. 9 mm cystic focus anterior to the anterior root, could represent a para-meniscal cyst or ganglion cyst. * Cruciate and collateral ligaments appear intact. Electronically signed by: Micah Watson MD 10/20/2025 07:42 AM EST
--- OUTSIDE RECORDS SUMMARY | 2025-10-19 21:03 | XMS_ITS | Encounter Summary ---
Author Organization [facility] Address [address] [place] [address] Phone Care Team Providers Care Supervisor Wet Room Name Role Phone Margot Carlton MD Primary Care Provider [phone] Encounter Details Date Type Department Care Team (Late st Contact Info) Description 09/17/2011 Conversion Encounter [facility] [address] [place] [address] Social History Tobacco Use Types Packs/Day Years [...] on filedocumented in this encounter Care Teams Supervisor Wet Room Relationship Specialty Start Date End Date Margot Carlton MD PCP - General 04/07/18 documented as of this encounter
--- OUTSIDE RECORDS SUMMARY | 2025-10-19 21:03 | XMS_ITS | Clinical Summary ---
Author Organization [facility] Address [address] [place] [address] Phone Care Team Providers Care Cyber Security Name Role Phone Margot Carlton MD Primary Care Provider [phone] Allergies No known active allergies Medications cloNIDine [...] 04/14/2019, 014 Procedures * Due to [place] [employer] law, this organization might not be sharing sensitive test results. Procedure Name Priority Date/Time Associated Diagnosis Comments CHLAMYDIA GC AMP PROBE Routine 08/27/2021 9:07 AM EDT Well adult exam from Last 3 Months or Most Recently Relevant to Health Maintenance Results * Due to [place] [employer] law, this organization might not be sharing sensitive test results. * CHLAMYDIA GC AMP PROBE (08/27/2021 9:07 AM EDT) Chlamydia Trachomatis, Amplified NEGATIVE (NEG) [facility] Comment: No Chlamydia Trachomatis RNA detected in this patient's sample (REFERENCE RANGE/NORMAL VALUE: NOT DETECTED) Note: This test uses twist packer- mediated amplification method to detect rRNA from C. Trachomatis N.GONORRHOEAE AMP PROBE NEGATIVE (NEG) [facility] Comment: No Neisseria Gonorrhoeae RNA detected in this patient's sample (REFERENCE RANGE/NORMAL VALUE: NOT DETECTED) NOTE: This test uses twist packer-mediated amplification method to detect rRNA from N.Gonorrhoeae. [...] without risk of sexual abuse. Consult the [facility] if needed. Contact phone number . Therapeutic failure or success cannot be determined with the Aptima Combo2 assay since nucleic acid may persist following appropriate antimicrobial therapy. The Centers for Disease Control and Prevention (CDC) recommends confirmatory retesting using culture or a different nucleic acid amplification test when positive results occur, if indicated. CHLAM/GC AMP PROBE SPEC TYPE CERVIX [facility] Comment: Testing performed or reported by [facility], a Service of [facility], [facility] [place] [address] Jose Alfredo Law MD, Partition Making Machine Operator [facility]# [id number] Swab (Vagina) 08/27/2021 9:0 7 AM EDT 08/27/2021 9:57 PM EDT us Margot Carlton MD LAB MICROBIOLOGY - GENERAL ORDER WILIAN Final Result [facility] from Last 3 Months or Most Recently Relevant to Health Maintenance Insurance [employer] Care Teams Cyber Security Relationship Specialty Start Date End Date Margot Carlton MD PCP - General 04/07/18
== END 2025-10-19 17:57 | disposition home or self-care (01) ==
LOC: HO.MRI 17:56
PROVIDERS: PCP Physician Assistant; Visit Provider Orthopaedic Surgery
DX: S83.242A Other tear of medial meniscus, current injury, left knee, initial encounter (principal)
CPT/HCPCS: 73721

== ENCOUNTER → 2025-10-19 18:02 | Outpatient (BNV) | payer OTHER, SELFPAY | PROVIDERS: PCP Physician Assistant; Visit Provider Radiology Diagnostic Ultrasound | DX: S83.242A Other tear of medial meniscus, current injury, left knee, initial encounter (principal) | CPT/HCPCS: 73721 ==